=== PATIENT | male | born 1980 | race African-American/Black ===

== ENCOUNTER 2017-04-16 05:08 | Emergency (ER) | payer MEDICAID ==
[2017-04-16] MEDS: IBUPROFEN 800 MG TAB PO (06:15)
[2017-04-16] MEDS: ACETAMINOPHEN 500 MG TAB PO (06:15)
== END 2017-04-16 06:15 | disposition home or self-care (01) ==
LOC: E/R 05:08
DX: H66.92 Otitis media, unspecified, left ear (principal); J02.0 Streptococcal pharyngitis; Z87.891 Personal history of nicotine dependence
CPT/HCPCS: 99283; Z7502